=== PATIENT | male | born 1945 | race Caucasian/White ===

== ENCOUNTER 2019-09-28 13:30 | Inpatient (IN) ==
--- NOTE | 2019-09-28 15:18 | PROVIDER DOCUMENTATION ---
HPI-Screening - General Chief Complaint: Weakness Stated Complaint: CANT WALK, Time Seen by Provider: 09/28/19 15:08 Source: patient, family Allergies/Adverse Reactions: Allergies Allergy/AdvReac Type Severity Reaction Status Date / Time No Known Allergies Allergy Verified 05/06/18 08:43 Home Medications: Home Medication List Medication Instructions Recorded Confirmed Last Taken Type ATORVAstatin [Lipitor] 40 mg PO QHS 03/09/14 03/09/14 Unknown History Aspirin 81 mg PO DAILY 03/09/14 03/09/14 03/09/14 08:00 History Estradiol [Estrace] 2 mg PO TID 03/09/14 03/09/14 03/09/14 08:00 History Meclizine HCl [Antivert] 25 mg PO TID 03/09/14 03/09/14 Unknown History Medroxyprogesterone [Provera] 2.5 mg PO DAILY 03/09/14 03/09/14 03/09/14 08:00 History Melatonin/Herbal Complex #184 1 each PO HS 03/09/14 03/09/14 03/09/14 21:00 History [Sleep Softgel] Spironolactone [Aldactone] 100 mg PO BID 03/09/14 03/09/14 03/09/14 08:00 History Levomilnacipran HCl [Fetzima] 1 each PO DAILY 03/10/14 03/10/14 03/09/14 08:00 History Metformin [Glucophage] 1,000 mg PO DAILY 03/10/14 03/10/14 03/09/14 08:00 History Patient arrived via EMS?: No HPI: 74yof presents to ED with her family who report that she has had increased weakness, increased confusion, inability to ambulate, and is mostly nonverbal over the past 2 weeks. They deny that she has experienced fever, chills, vomiting, chest pain, shortness of breath, or falls. Physical Exam-Screening - CONSTITUTIONAL General Appearance: appears well, alert, no apparent distress - EYES Eyes: PERRL/EOMI, pink conjunctivae - HEAD, EARS, NOSE, MOUTH & THROAT HENMT: normocephalic/atraumatic, moist mucous membranes, normal ENT inspection - NECK Neck: non-tender, full range of motion, supple. negative: meningismus - RESPIRATORY Respiratory: chest non-tender, lungs clear, normal breath sounds - CARDIOVASCULAR Cardiovascular: normal peripheral pulses, regular rate, rhythm - GASTROINTESTINAL (ABDOMEN) Abdominal Exam: normal bowel sounds, non tender, soft - MUSCULOSKELETAL Back Exam: normal inspection, no CVA tenderness, no vertebral tenderness Extremity: normal range of motion, non-tender, normal inspection, other (unable to test gait) - SKIN Integumentary: normal color, normal turgor, warm/dry - NEUROLOGIC Neurologic: other (Nonverbal, cooperative with exam) Screening Depart - Departure ED Screening Disposition: Continued in ED for Treatment Referrals and Follow-Ups: None,PCP [Primary Care Provider] - Attestation - Physician/ SUBHASH Attestation Patient care was provided by Advanced Practice Provider:: Yes Advanced Practice Provider:: Oxana Kyle Advanced Practice Provider documentation review:: The Mid-level provider documentation, treatment plan and medical decision making was reviewed by the physician who agrees with all treatment and medical decision making by the MLP. The physician spent face to face time with patient:: No Advanced Practice Provider documentation review:: Supervising physician onsite and consulted in the evaluation and care of this patient. The physician did not have a face to face encounter with the patient.
--- NOTE | 2019-09-28 15:41 | Diag Imaging Result Doc PS360 ---
EXAM: CT HEAD W/O CONTRAST 09/28/2019 HISTORY: weakness, AMS TECHNIQUE: This exam was performed using automated exposure control, adjustment of mA or kV according to patient size, and/or use of iterative reconstruction technique. COMMENT: There is generalized cerebral atrophy with extensive patchy lucency in the white matter of both hemispheres. Compared to 07/28/2019 this has not changed significantly. There is no evidence of mass effect, bleed, or abnormal extra-axial fluid collection. The calvarium is intact. The visualized paranasal sinuses are clear. IMPRESSION: Chronic ischemic white matter change. No evidence of acute disease. In view of the chronic changes further evaluation with MRI may be desirable if clinically indicated. Electronically signed by Zachariah Rivera 09/28/2019 3:38 PM
--- NOTE | 2019-09-28 15:43 | EKG Report ---
Test Performed on : 09/28/2019 3:25:00 PM Test Reason : weakness Blood Pressure : / mmHG Vent. Rate : 100 BPM Atrial Rate : 100 BPM P-R Int : 182 ms QRS Dur : 100 ms QT Int : 390 ms P-R-T Axes : 011 008 -02 degrees QTc Int : 503 ms Normal sinus rhythm. 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
--- NOTE | 2019-09-28 15:49 | Diag Imaging Result Doc PS360 ---
EXAM: CHEST-2 VIEWS 09/28/2019 HISTORY: weakness, AMS TECHNIQUE: PA and lateral chest COMMENT: The inspiration is less optimal than on 07/28/2019. There is some questionable atelectasis or pneumonia in the lateral costophrenic sulcus on the left. Otherwise are has been no significant change. IMPRESSION: Questionable left lower lobe atelectasis. Poor inspiration. Electronically signed by Zachariah Rivera 09/28/2019 3:46 PM
[2019-09-28 16:11] LABS: BASO# 0.01 X1000 (0.0-0.2); BASO% 0.1 % (0.0-0.8); EOS# 0.09 X1000 (0.0-0.7); EOS% 0.6 % (0.0-10.0); HEMATOCRIT 44.9 % (42.0-52.0); HEMOGLOBIN 14.8 g/dL (14.0-18.0); IMM GRAN# 0.03 X1000 (0.0-0.04); IMM GRAN% 0.2 % (0.0-0.5); LYMPH% 16.1 % (20.5-51.1); MCH 29.4 PG (27-31); MCV 89.1 FL (81-99); MONO# 1.39 X1000 (0.11-0.59); MONO% 9.3 % (1.7-9.3); MPV 10.7 FL (7.4-10.4); NEUT# 11.03 X1000 (1.4-6.5); NEUT% 73.7 % (42.2-75.2); PLT 322 X1000 (130-400); RBC 5.04 XMIL (4.7-6.1); RDW 13.8 % (11.5-14.5); WBC 14.95 X1000 (4.8-10.8)
[2019-09-28 16:29] LABS: ALB/GLOB RATIO 1.3; ALBUMIN 4.8 g/dL (3.5-5.0); CALCIUM 10.4 mg/dL (8.8-10.2); CREATININE 1.2 mg/dL (0.7-1.2); POTASSIUM 3.9 mmol/L (3.5-5.1); TOTAL BILIRUBIN 0.64 mg/dL (0.20-1.00); TOTAL PROTEIN 8.5 g/dL (6.3-8.3)
[2019-09-28] MEDS ORDERED: ROCEPHIN 1 GM in NS 50 ML IV ONE (18:42)
--- NOTE | 2019-09-28 18:42 | PROVIDER DOCUMENTATION ---
HPI-General Adult - General Chief Complaint: Weakness Stated Complaint: CANT WALK, Time Seen by Provider: 09/28/19 15:08 Source: family (spouse) Allergies/Adverse Reactions: Patient Allergies Allergy/AdvReac Type Severity Reaction Status Date / Time No Known Allergies Allergy Verified 05/06/18 08:43 Home Medications: Home Medication List Medication Instructions Recorded Confirmed Last Taken Type ATORVAstatin [Lipitor] 40 mg PO QHS 03/09/14 03/09/14 Unknown History Aspirin 81 mg PO DAILY 03/09/14 03/09/14 03/09/14 08:00 History Estradiol [Estrace] 2 mg PO TID 03/09/14 03/09/14 03/09/14 08:00 History Meclizine HCl [Antivert] 25 mg PO TID 03/09/14 03/09/14 Unknown History Medroxyprogesterone [Provera] 2.5 mg PO DAILY 03/09/14 03/09/14 03/09/14 08:00 History Melatonin/Herbal Complex #184 1 each PO HS 03/09/14 03/09/14 03/09/14 21:00 History [Sleep Softgel] Spironolactone [Aldactone] 100 mg PO BID 03/09/14 03/09/14 03/09/14 08:00 H istory Levomilnacipran HCl [Fetzima] 1 each PO DAILY 03/10/14 03/10/14 03/09/14 08:00 History Metformin [Glucophage] 1,000 mg PO DAILY 03/10/14 03/10/14 03/09/14 08:00 History - History of Present Illness -Gen Adult Nature of Presenting Problems: Patient is a 74 yowm who presents to the ED with his due to generalized weakness x 2 weeks. She reports some AMS and states the weakness progressed today to the point where pt was unable to walk. Reports that pt fell getting out of the shower a week and a half ago and then slipped out of bed a week ago due to weakness. She states he has not complained of any pain. Denies cough, fever, n/v/d, pain, or any other complaints. Review of Systems - Adult - REVIEW OF SYSTEMS - ADULT Constitutional: reports: no symptoms reported. denies: fever Eyes: reports: no symptoms reported Ears, Nose, Mouth & Throat: reports: no symptoms reported Cardiovascular: reports: no symptoms reported Respiratory: reports: no symptoms reported Gastrointestinal: reports: no symptoms reported Genitourinary: reports: no symptoms reported Musculoskeletal: reports: see HPI (weakness) Integumentary: reports: no symptoms reported Neurological: reports: see HPI (AMS), loss of balance Psychiatric: reports: no symptoms reported Endocrine: reports: no symptoms reported Hematologic/Lymphatic: reports: no symptoms reported Allergic/Immunologic: reports: no symptoms reported All Other Systems: Reviewed and Negative Past History - Adult - PAST MEDICAL HISTORY-ADULT Review of Records: reports: Old Records Reviewed, Nursing Assessment Review, Medications Reviewed, Social history reviewed & non-contributory. Major Childhood Illnesses: reports: denies history Cardiovascular: reports: denies history Genitourinary: reports: denies history Musculoskeletal: reports: denies history Endocrine/Immune: reports: Diabetes Diabetes Type: Type 2 Diabetes controlled by:: PO Meds - PRIOR SURGERIES/PROCEDURES Surgical/Procedure History: reports: reviewed, not pertinent - FAMILY HISTORY Family History: reviewed, not pertinent - SOCIAL HISTORY Smoking: non-smoker Physical Exam-General - PHYSICAL EXAM-ADULT Initial Vital Signs Reviewed: Yes - CONSTITUTIONAL General Appearance: alert, no apparent distress. negative: lethargic, slow to respond - EYES Eyes: PERRL/EOMI, pink conjunctivae. negative: sclera injected, scleral icterus, sunken eyes - HEAD, EARS, NOSE, MOUTH & THROAT HENMT: normocephalic/atraumatic, moist mucous membranes - NECK Neck: non-tender, full range of motion, supple, normal inspection. negative: C- spine tenderness (no stepoff) - RESPIRATORY Respiratory: chest non-tender, lungs clear, normal breath sounds, no respiratory distress, no accessory muscle use - CARDIOVASCULAR Cardiovascular: normal peripheral pulses, regular rate, rhythm, no gallop, no murmur - GASTROINTESTINAL (ABDOMEN) Abdominal Exam: normal bowel sounds, non tender, soft - MUSCULOSKELETAL Back Exam: normal inspection Extremity: non-tender, normal inspection, pelvis stable - SKIN Integumentary: normal color, warm/dry. negative: cyanosis, diaphoresis, jaundice, mottled, pallor - NEUROLOGIC Neurologic: negative: aphasia, facial droop - PSYCHIATRIC Psych/Mental Status: normal mood/affect, other (Pt alert, unable to answer any questions regarding orientation.) Progress - PLAN OF CARE/RESULTS Progress/Plan/Lab Results: Vital Signs - 8 hr 09/28/19 13:40 09/28/19 15:28 Temperature 98.5 F Pulse Rate 95 H 100 H Respiratory Rate 16 18 Blood Pressure 167/81 189/114 O2 Sat by Pulse Oximetry 96 98 Laboratory Results - last 24 hr 09/28/19 09/28/19 09/28/19 15:50 15:50 15:50 WBC 14.95 H RBC 5.04 Hgb 14.8 Hct 44.9 MCV 89.1 MCH 29.4 MCHC 33.0 RDW Std Deviation 13.8 Plt Count 322 MPV 10.7 H Immature Gran % (Auto) 0.2 Neut % (Auto) 73.7 Lymph % (Auto) 16.1 L Hancock % (Auto) 9.3 Eos % (Auto) 0.6 Baso % (Auto) 0.1 Immature Gran # (Auto) 0.03 Neut # (Auto) 11.03 H Lymph # (Auto) 2.40 Hancock # (Auto) 1.39 H Eos # (Auto) 0.09 Baso # (Auto) 0.01 Sodium 136 Potassium 3.9 Chloride 94 L Carbon Dioxide 24 L Anion Gap 18 BUN 19 Creatinine 1.2 Estimated GFR/1.73 m2 59 BUN/Creatinine Ratio 16 Glucose 202 H Calculated Osmolality 280 Calcium 10.4 H Total Bilirubin 0.64 AST 17 ALT 21 Alkaline Phosphatase 97 Troponin T < 0.010 Total Protein 8.5 H Albumin 4.8 Globulin 3.7 Albumin/Globulin Ratio 1.3 Orders Category Date Time Status CHEST-2 VIEWS [RAD] Stat Exams 09/28/19 15:[address] HEAD W/O CONTRAST [CT] Stat Exams 09/28/19 15:15 Completed CBC WITH ELECTRONIC DIFF [HEME] Stat Lab 09/28/19 15:50 Completed COMPREHENSIVE METABOLIC PANEL [CHEM] Stat Lab 09/28/19 15:50 Completed TROPONIN T Stat Lab 09/28/19 15:50 Completed URINALYSIS [URINALYSIS] Stat Lab 09/28/19 15:00 Uncollected Generalized Adult Illness >60 Stat Oth 09/28/19 14:59 Ordered EKG [EKG] Stat Ther 09/28/19 15:00 Draft Result Diagrams: 09/28/19 15:50 09/28/19 15:50 - REASSESSMENT Reassessment #1 Time Reassessed: 18:47 Status: other ( in agreement with admission plan.) - XRAY 1 XRAY Study: Chest ([facility] - [address], [address], [place] [address] [facility] - [facility], [place] [address] Department of Imaging Patient: JAKI COLEMAN Date: 09/28/19MR#: [id number] : 1945 Status: PRE ERAcct#: [id number] Age/Sex: 74/MRoom/Bed: Loc: ED Ordering Physician: Oxana Kyle Family Physician: None,PCP Reason for Procedure: weakness, AMS ____ Signed EXAM: CHEST-2 VIEWS 09/28/2019 HISTORY: weakness, AMS TECHNIQUE: PA and lateral chest COMMENT: The inspiration is less optimal than on 07/28/2019. There is some questionable atelectasis or pneumonia in the lateral costophrenic sulcus on the left. Otherwise are has been no significant change. IMPRESSION: Questionable left lower lobe atelectasis. Poor inspiration. Electronically signed by Zachariah Rivera 09/28/2019 3:46 PM 09/28/19 1546 Interpreting Physician: Zachariah Rivear MD Dictated Date/Time: 09/28/19 1545 cc: Oxana Kyle; None,PCP) - CT/MRI 1 CT Study: Head ([facility] - [address], [address], [place] [address] , [place] [address] Department of Imaging Patient: DELMY COLEMAN Date: 09/28/19MR#: [id number] : 1945ADM Status: PRE ERAcct#: [id number] Age/Sex: 74/MRoom/Bed: Loc: ED Ordering Physician: Oxana Kyle Family Physician: None,PCP Reason for Procedure: weakness, AMS Signed EXAM: CT HEAD W/O CONTRAST 09/28/2019 HISTORY: weakness, AMS TECHNIQUE: This exam was performed using automated exposure control, adjustment of mA or kV according to patient size, and/or use of iterative reconstruction technique. COMMENT: There is generalized cerebral atrophy with extensive patchy lucency in the white matter of both hemispheres. Compared to 07/28/2019 this has not changed significantly. There is no evidence of mass effect, bleed, or abnormal extra-axial fluid collection. The calvarium is intact. The visualized paranasal sinuses are clear. IMPRESSION: Chronic ischemic white matter change. No evidence of acute disease. In view of the chronic changes further evaluation with MRI may be desirable if clinically indicated. Electronically signed by Zachariah Rivera 09/28/2019 3:38 PM 09/28/19 1538 Interpreting Physician: Zachariah Rivera MD Dictated Date/Time: 09/28/19 1537 cc: Oxana Kyle; None,PCP) - CONSULTS/PCP/HOSPITALIST Notification #1 *Consult/PCP/Hospitalist*: GUSTAVO Cardenas [employer] DISPENSER Time Discussed: 18:46 Reason/Comments: admit- weakness, AMS, pne Consult Disposition: Admit Departure - Departure Date of Disposition Decision: 09/28/19 Time of Disposition Decision: 18:46 DIAGNOSIS: Weakness Pneumonia Qualifiers: Pneumonia type: due to unspecified organism Laterality: left Lung location: lower lobe of lung Qualified Code(s): J18.1 - Lobar pneumonia, unspecified organism Disposition: ADMITTED INPATIENT 09 Certified Medical Emergency: Emergent Condition: Stable Referrals and Follow-Ups: None,PCP [Primary Care Provider] - - Critical Care Note This patient required my direct & personal management of CC.: No Attestation - Physician/ SUBHASH Attestation Patient care was provided by Advanced Practice Provider:: Yes Advanced Practice Provider:: Rolando Eagle Advanced Practice Provider documentation review:: The Mid-level provider documentation, treatment plan and medical decision making was reviewed by the physician who agrees with all treatment and medical decision making by the MLP. The physician spent face to face time with patient:: No Advanced Practice Provider documentation review:: Supervising physician onsite and consulted in the evaluation and care of this patient. The physician did not have a face to face encounter with the patient.
[2019-09-28] MEDS ORDERED: ZOSYN 3.375 GM in NS 50 ML IV ONE (18:47)
[2019-09-28 20:35] LABS: INR 1.03; PROTIME 13.6 Seconds (11.0-16.0); PTT 31.3 Seconds (22.3-41.8)
[2019-09-28] MEDS ORDERED: NS 1,000 ML IV SCH (23:45)
[2019-09-28] MEDS ORDERED: ZOFRAN IV PRN (23:57)
[2019-09-29] MEDS ORDERED: TYLENOL PR PRN (00:02)
[2019-09-29] MEDS: PROTONIX IV SCH (00:27)
[2019-09-29 01:37] LABS: CK INDEX 1.2 (0.0-2.5); CK-MB 2.91 ng/mL (0.0-5.0)
[2019-09-29 05:13] LABS: URINE SOURCE CATH
[2019-09-29 05:16] LABS: BILIRUBIN URINE NEGATIVE (NEGATIVE); BLOOD URINE SMALL (NEGATIVE); COLOR YELLOW; GLUCOSE URINE NEGATIVE (NEGATIVE); KETONE URINE NEGATIVE (NEGATIVE); LEUKOCYTES URINE NEGATIVE (NEGATIVE); NITRITE URINE NEGATIVE (NEGATIVE); PROTEIN URINE TRACE mg/dL (NEGATIVE); SP GRAVITY URINE 1.017; TURBIDITY URINE CLEAR (CLEAR); UROBILINOGEN URINE NORMAL (NORMAL)
[2019-09-29 05:17] LABS: UR EPITHELIAL CELLS <10 /HPF (<10); URINE BACTERIA NEGATIVE /HPF; URINE RBC <10 /HPF (<10); URINE WBC <10 /HPF (<10)
[2019-09-29] MEDS: ZOSYN 3.375 GM in NS 50 ML IV SCH ×3 (06:32→14:01)
[2019-09-29] MEDS: HUMULIN R SUBQ SCH ×4 (06:34→21:19)
[2019-09-29 07:26] LABS: BASO# 0.02 X1000 (0.0-0.2); BASO% 0.2 % (0.0-0.8); EOS# 0.24 X1000 (0.0-0.7); EOS% 2.5 % (0.0-10.0); HEMATOCRIT 40.7 % (42.0-52.0); HEMOGLOBIN 13.8 g/dL (14.0-18.0); IMM GRAN# 0.02 X1000 (0.0-0.04); IMM GRAN% 0.2 % (0.0-0.5); LYMPH# 1.65 X1000 (1.2-3.4); MCH 30.3 PG (27-31); MCHC 33.9 g/dL (33-37); MCV 89.5 FL (81-99); MONO# 0.93 X1000 (0.11-0.59); MONO% 9.6 % (1.7-9.3); MPV 10.7 FL (7.4-10.4); NEUT# 6.86 X1000 (1.4-6.5); NEUT% 70.5 % (42.2-75.2); PLT 240 X1000 (130-400); RBC 4.55 XMIL (4.7-6.1); RDW 13.6 % (11.5-14.5); WBC 9.72 X1000 (4.8-10.8)
[2019-09-29 07:54] LABS: CALCIUM 9.4 mg/dL (8.8-10.2); CREATININE 1.2 mg/dL (0.7-1.2); POTASSIUM 3.6 mmol/L (3.5-5.1)
--- NOTE | 2019-09-29 09:22 | HISTORY AND PHYSICAL ---
PRIMARY CARE PROVIDER: [facility] in [place]. DATE AND TIME: 09/28/2019 at 2000. CHIEF COMPLAINT: Weakness. HISTORY OF PRESENT ILLNESS: Ms. Scott is a 74-year-old transgender woman, who presented to the ER with initial chief complaint of weakness. The patient previously was identified as a male with the previous name of Lazaro Scott, though is a transgender woman at this time, who goes by the name of Lauryn Scott. She does like to be addressed as Ms. Combs or Ms. Scott, with the prefix of she as well. Though the patient identifies as a woman, she still does have male genitalia, and does take medications of Estrace and Provera for this as well. The patient's , who was present at bedside, did provide most of the history as the patient was confused. She reports that Ms. Scott, for the past few weeks now, has had a steady decline. She reports that she has been having some worsening problems with memory and confusion, though this has gotten much worse over the past week or two. She states that since approximately 2 weeks ago, the patient went from being able to walk with a cane or a walker, to being wheelchair-dependent. Her reports that she has had approximately 2 to 3 falls secondary to weakness. She also reports that she has been having memory problems, has been having worsening confusion. Her states that sometimes it is as though she cannot find the words to speak, though knows what she wants to say. She also reports that she has been favoring her left side, such as when she is sitting in a chair, she will lean to the left side. She reports no known history of her having fever, body aches, or chills. denies her having any recent diagnosis of a urinary infection or any other infection. Her denies her having any reported chest pain, abdominal pain, nausea, vomiting, or diarrhea. Her reports that she is incontinent, though has not complained of any dysuria. Her denies her having any reported pain in extremities, though she states that occasionally she will have swelling in her ankles and feet. Her reports that there is a history of hyperlipidemia, diabetes mellitus type 2, though she denied her having any known history of stroke or TIA in the past. A previous history and physical from 2013 did have a history of TIA present on it. She reports that she previously was on aspirin 81 mg p.o. daily, though they have stopped taking this several months ago. Though the patient's did not report to me, she did report to Dr. Doyle that there was a possible diagnosis of Parkinson's disease by one of her physicians at the [place], though they may have been placed on medications for this, though they decided on their own to stop taking them. Her also does report that they use lidocaine gel for pain in her legs, as well as [id number] ibuprofen 400 mg twice a day. The patient was able to tell me that she was not having any chest pain, though did feel occasionally like she may have been short of breath at times. She also reported that she has had a cough for a few weeks as well. The patient's did not report that she appeared at times that she was short of breath and distressed, though did report seeing her breathe heavy and deeply. Her also reports that they do have an appointment in 3 weeks at the [place] for a swallowing study and evaluation due to she has been having trouble with swallowing and getting choked on food. Upon evaluation in the ER, initial vital signs were temperature 98.5 degrees, heart rate 95, respirations 16, blood pressure is 167/81, oxygen saturation 96% on room air. Laboratory results revealed some leukocytosis with a white blood cell count of 14,950. Chemistries were pretty unremarkable. All electrolytes were within normal limits, except for calcium is slightly elevated at 10.4. The patient was mildly hyperglycemic with a serum glucose of 202. Troponin was negative, though CK was slightly elevated at 236. Urinalysis did show a small amount of blood, but this was a cath urine. This could be secondary to trauma from obtaining the urinalysis. It did not show any signs of infection. It was negative for nitrites, leukocytes, white blood cells, or bacteria. CT of the head without contrast did not show any acute abnormalities. Chest x-ray did show a questionable atelectasis or pneumonia in the lateral costophrenic sulcus on the left. Given the patient's neurological symptoms as well as possible pneumonia, the patient was placed inpatient for admission. REVIEW OF SYSTEMS: Unfortunately, a review of systems was not really able to be performed with the patient due to the patient's current condition and mentation. The patient was able to tell me that she has not been having chest pain, though may have felt short of breath at times, and has had a cough. Other than this, the patient's did provide most of the reported symptoms. Please see the above HPI. PAST MEDICAL HISTORY: 1. Diabetes mellitus type 2. 2. Vertigo. 3. History of TIA. 4. Hyperlipidemia. 5. Questionable diagnosis/history of Parkinson's disease. 6. The patient is a transgender woman. Her assigned sex at was male, and she still does have male genitalia, though identifies herself as a female. The patient does request to be called Ms. RoperLauryn or Ms. Scott, and would like the prefix she used. 7. The patient does have frequent constipation, and does take Colace daily, as well as MiraLAX as needed to assist with bowel movements. PAST SURGICAL HISTORY: Left knee surgery. SOCIAL HISTORY: The patient is a former smoker. She did smoke since the age of 15 or 16, though quit 11 years ago. She smoked approximately 1 pack of cigarettes per day during this time. The patient also had a previous history of alcohol use. Her reports that she quit drinking 10 years ago, though used to drink heavily approximately 3 to 4 times a week. There is no known history of illicit drug use. As previously mentioned, her was present at bedside during my examination. She reports that up until 2 weeks ago, the patient did ambulate with a cane or walker, though since 2 weeks ago has been wheelchair-dependent. FAMILY HISTORY: Positive for her mother is alive, and she is in possibly her 80s from what I understand, and does have a history of dementia and diabetes. This was obtained from previous history and physical. The patient's previous history and physical did also state that she did not know her biological father. ALLERGIES: The patient has no known allergies. HOME MEDICATIONS: 1. Vitamin D3, 1000 unit capsule 1 p.o. daily. 2. Lexapro 10 mg p.o. daily. 3. Estrace 2 mg p.o. daily. 4. Glipizide 10 mg p.o. every a.m. 5. Provera 2.5 mg p.o. daily. 6. Melatonin/herbal complex #184 sleep softgel 1 p.o. at bedtime. 7. Prilosec 20 mg p.o. every a.m. 8. Ditropan XL 10 mg p.o. every a.m. 9. Aldactone 100 mg p.o. every a.m. DIAGNOSTIC DATA: White blood cell count is 14,950, hemoglobin 14.8, hematocrit 44.9, platelet count is 322,000. PT 13.6, INR 1.03, PTT is 31.3. Sodium 136, potassium 3.9, chloride 94, serum bicarbonate is 24, BUN 19, creatinine 1.2, with a GFR of 59, glucose 202, calcium 10.4. Magnesium 1.9. Liver function tests are within normal limits. CK is 236, CK index 1.2, CK-MB is 2.91. Troponin is less than 0.01. Urinalysis was obtained via catheter and was positive for trace protein and small amount of blood. It was negative for glucose, ketones, nitrites, leukocytes, white blood cells, or bacteria. EKG showed normal sinus rhythm with incomplete right bundle-branch block and a prolonged QT. Ventricular rate was 100. QTc was 503. Head CT showed chronic ischemic white matter change, but no evidence of acute disease. It was noted that in view of chronic changes, further evaluation with MRI may be desirable if clinically indicated. This is per Radiology. Chest x-ray shows that there was some questionable atelectasis or pneumonia in the lateral costophrenic sulcus on the left. There is poor inspiration, though otherwise there has been no significant change. This was per Radiology. PHYSICAL EXAMINATION: VITAL SIGNS: Temperature 98.2 degrees, heart rate 88, respirations 14, blood pressure 145/78, oxygen saturation is 97% on room air. GENERAL: Ms. Scott is a 74-year-old female who identifies as a transgender woman. She was resting in the ER stretcher. She was in no acute distress, though she was awake. She was confused, though was able to follow some commands. HEENT: Head is atraumatic, normocephalic. Pupils are equal, round, reactive to light, were 3 mm bilaterally and brisk. Oral mucosa is moist. Oropharynx is clear. NECK: Supple. Trachea midline. CARDIOVASCULAR: The patient has S1, S2 present. No murmurs, gallops, rubs appreciated with a regular rate and rhythm. PULMONARY: The patient has symmetrical chest expansion bilaterally. Lung sounds are clear to auscultation in bilateral full barillas. ABDOMEN: Soft. It does not appear to be distended. The patient does have a protuberant abdomen noted. Bowel sounds are present in all 4 quadrants, were hypoactive. EXTREMITIES: No cyanosis or edema noted. Pedal pulses and radial pulses were 2+ bilaterally. INTEGUMENTARY: The patient's skin is pink, warm, and dry. NEUROLOGICAL: The patient is awake and alert, though was confused upon my examination. She is only oriented to person at this time. She was able to identify her at bedside, and was able to follow some simple commands. There was no facial droop noted. We were not able to complete a visual barillas test due to the patient's understanding and cooperation. The patient did have equal hand grasps bilaterally and muscle strength bilaterally in upper extremities, though did have weakness during examination of the arm raise. This was the same in the left leg raise as well. The patient also does seem to be experiencing what is likely some expressive aphasia. There is overall generalized weakness, though as previously mentioned, the patient's states that she has been favoring her left side, and when performing left arm and left leg raises, the patient did have only slight effort against gravity in these extremities. The patient's neurological exam at this time is limited due to her current condition and mentation. ASSESSMENT AND PLAN: 1. Possible left lower lobe pneumonia. The patient did have some leukocytosis with a white blood cell count of 14,950. She did report a cough and some occasional shortness of breath at times. Given the patient's reported history of dysphagia, there is a concern for possible aspiration pneumonia. Given this, we have placed the patient on antibiotic coverage of Zosyn intravenously. Blood cultures were obtained. We have ordered a sputum culture as well. The patient will be nothing by mouth at this time. We have ordered a swallowing evaluation. We will do aspiration precautions, encouragement of frequent turn, cough, and deep breathing, and incentive spirometry. We will place on as needed DuoNeb treatments if needed. 2. Dysphagia. The patient's did report that she has been having difficulty with swallowing and getting choked on foods. They actually have an appointment in 3 weeks with the [place] for evaluation of this. Given the possibility of pneumonia as well as possible aspiration, we will go ahead and order a swallowing screen to be performed here. We will place the patient nothing by mouth until swallowing screen has been performed. 3. Leukocytosis. This is likely secondary to possible pneumonia. The patient's urinalysis did not show any signs of infection. Will continue treatment as mentioned above in #1, and continue to follow. 4. Possible cerebrovascular accident. For further evaluation of this, we have placed orders for an echocardiogram, carotid ultrasound, and an MRI without contrast in the morning. We will also draw a lipid profile as well. There was a questionable diagnosis/history of Parkinson's. Some of these symptoms could be related to this as well. Given that, we have also placed a consult with Neurology. Will await their evaluation and further recommendations for management. 5. Encephalopathy. Will continue with treatment as mentioned above in #1. The patient has been placed on neurologic checks and frequent vital signs with continuous cardiac telemetry. 6. Weakness. Will continue treatment as mentioned above for #3 and #4. We have also ordered a series of cardiac enzyme and the echocardiogram as previously mentioned, and will continue with our neurological workup. 7. Diabetes mellitus type 2. The patient is nothing by mouth at this time. We are holding oral medication. We have ordered a regular insulin sliding scale per patient specific dosing, not to be treated until fingerstick blood sugar is above 200 while she remains nothing by mouth. 8. Hyperlipidemia. We are holding oral medication at this time, waiting for a swallowing screen, though we have ordered a lipid profile. 9. Deep venous thrombosis prophylaxis will be provided with sequential compression devices. The patient has been placed on the medical floor with telemetry. She will have vital signs and neurologic checks every 4 hours. She is on continuous cardiac telemetry. Further orders and recommendations pending hospital course, diagnostic studies, and physician evaluation. Dictated by WILBERT Moreira for Ayo Doyle MD I have performed a face to face diagnostic evaluation. Labs/ xrays- reviewed. Exam- Chest - rales, CV- regular. A/P- Pneumonia- Admit, check blood cultures, IV ABX. Dr. Doyle cc: Ayo Doyle MD [facility]
--- NOTE | 2019-09-29 09:43 | Diag Imaging Result Doc PS360 ---
EXAM: MRI BRAIN W/O CONTRAST 09/29/2019 HISTORY: Poss. CVA, Encephalopathy, Weakness TECHNIQUE: T1 sagittal, axial and axial T2, FLAIR, DWI and coronal gradient echo. COMMENT: There are hypertrophic changes around the odontoid producing a mild degree of spinal stenosis at the C1 level. There is considerable hyperintensity on T2 in the white matter in the periventricular regions bilaterally. The fourth ventricle is not enlarged. There is some enlargement of the lateral ventricles which may be due to ex vacuo change. There is mild atrophy of the cerebral hemispheres. No evidence of bleed or abnormal extra-axial fluid collection is present. There is no evidence of restricted diffusion. IMPRESSION: No evidence of acute ischemia. Diffuse cerebral periventricular leukoencephalopathy. Mild cerebral atrophy. Mild spinal stenosis at C1 due to hypertrophic changes around the odontoid. Electronically signed by Zachariah Rivera 09/29/2019 9:40 AM
--- NOTE | 2019-09-29 10:24 | PROGRESS NOTE ---
DATE: 09/29/2019 SUBJECTIVE: This morning, I saw Ms. Scott; Ms. Scott is actually registered as a male, but her of over 40 years was at the bedside, and she did remind me that the patient is a female and that I should address her by the female pronoun. She has an extensive history of multiple admissions in the [facility]. Recently discharged a [place] the [place] [facility] for a similar presentation of generalized weakness and vertigo. Said at some point she was admitted to the psych unit as well for over 2 months, was subsequently sent to [facility] and she was doing well after she came from rehab until the past 2 weeks. She has just been progressively been getting weaker and weaker, so she was brought in here. OBJECTIVE: Vital signs: Blood pressure is 149/69, pulse of 83, respiration is 16, temperature is 98.3 degrees and patient is saturating 95%. General exam: Ms. Scott is a 74-year-old registered male/ person was in the bed, no distress. HEENT: Mucosa is slightly dry. Anicteric. Acyanotic. Neck: Supple. Chest: Good air entry bilateral. Did not hear any crepitations. No rhonchi. Cardiovascular: Regular rate and rhythm. No murmurs, no rubs, no gallops. GI/Abdomen: Soft, distended, but nontender. Bowel sounds are present, but hypoactive. Extremities: No pedal edema. ELEVATOR ATTENDANT: The patient is awake, alert, oriented. Seems to be monophasic in her speech without any intonation deflection. Her face has also less expression, but her power in all extremities seems to be fairly okay. LABORATORY DATA: WBC is down to 9.72, hemoglobin is 13.8, platelet count 240. Chemistry is also reviewed. TSH of 4.51. DIAGNOSTIC STUDIES: 1. A chest x-ray did show questionable left lower lobe atelectasis, poor inspiration. 2. A head CT scan showed chronic ischemic white matter changes. 3. The patient is just done with MRI and we are pending the official report. ASSESSMENT: 1. Generalized weakness and fatigue on presentation of unclear etiology. 2. Clinical volume depletion. 3. Leukocytosis, most likely reactive. The patient's chest x-ray does suggest some infiltrate in the left lower lobe. I am not quite sure if there is any pneumonia, so we will repeat the x- ray with 2 views, including lateral, to have a better idea. 4. History of severe depression. The patient has been admitted in the psych unit in [place] before. She is supposed to be on antidepressive medicine; Lexapro is what I have seen in her chart. 5. Abnormal thyroid stimulating hormone. We are going to repeat this with free T4. 6. Constipation. We will start the patient on bowel regimen. PLAN: So in general, I think Ms. Scott is doing well, is clinically stable. I do not really find any neurological deficits. The patient just underwent MRI; we are pending the official report. We will continue with the gentle hydration, and we will be pending evaluation from Neurology. [facility]. [facility], so I will contact case management to see if it will be okay to transfer her [facility] the [facility]. cc: Mathew Poole MD MTDD
[2019-09-29 10:31] LABS: FREE T4 1.26 ng/dL (0.93-1.70); TSH 4.56 uIUmL (0.27-4.20)
--- NOTE | 2019-09-29 14:29 | Diag Imaging Result Doc PS360 ---
EXAM: CHEST-2 VIEWS 09/29/2019 HISTORY: left lower infiltrate ? TECHNIQUE: PA and lateral chest COMMENT: The inspiration is suboptimal. Compared to 09/28/2019 the ill-defined opacity in the left costophrenic sulcus laterally has apparently cleared. IMPRESSION: No acute disease. Electronically signed by Zachariah Rivera 09/29/2019 2:26 PM
--- NOTE | 2019-09-29 19:37 | CONSULTATION ---
DATE OF CONSULTATION: 09/29/2019 Ms. 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 History from the patient is that forgetfulness has been noticeable and details are not certain. History from attentive son at the bedside and from review of the hospital record is that cognitive impairment was recognized more than a few years ago, and there has been a gradual progressive decline. Some days have been better than others, but there has not been abrupt deterioration. There has been unsteady gait with gradually more tendency to falling. There has been gradually more attention and supervision required with feeding, dressing, and daily activities. Son reports occasional trouble swallowing. There is not history of serious head injury, diagnosed stroke, diagnosed seizure, other neurologic event. Son reports there was treatment for Parkinson disease for an uncertain period of months approximately a year ago. Son reports there might have seemed to be minor improvement initially with that treatment, but that did not persist and the medicine was stopped. Son does not recall the name of the medicine or the dose. Son does not recall trial with medicine to help memory. Son states after a fall, the patient will sometimes have a blank stare. Son has seen similar blank stares sometimes when the patient is sitting without falling. Son is not aware of prior workup for seizure, but he reports there has been extensive workup [facility], including fairly recent [facility] hospitalization. Here, initial noncontrast CT of the head showed the usual changes. Brain MRI without contrast showed diffuse white matter changes, but nothing focal or acute. Ventricles are a little bit large, particularly the occipital horns, but the cortical atrophy appears roughly proportionate to the subcortical atrophy. Labs showed WBC count initially 14,000 and then 9000. Blood sugars have ranged 180s to 210s. CK was initially 236 then 164. TSH was 4.5 and free T4 1.26. There has not been fever. Systolic blood pressures have ranged 140s to 180s. Heart rate has ranged 80 to 100. There is reported past history of diabetes mellitus type 2, dyslipidemia. There is report of cigarette smoking from teens through early 60s, but no cigarettes in 11 years. Family history is negative for identical or similar problem. Biological father and paternal family history are reported to be not known. On exam, Ms. Scott is awake, alert, attentive. She answered questions appropriately, but often incorrectly. Speech is not significantly dysarthric. Language function is intact on brief bedside testing. Remote memory is fair and recent memory is poor. She could not name the President or discuss recent news. She did not identify this hospital by name. She did not provide the correct date when asked. She had trouble registering 3 words, and then could recall none of 3 words at 5 minutes. There was some perseveration with other cognitive testing. She did well with bedside naming. She interpreted a metaphor concretely. She interpreted a simile correctly. Strength is normal in the arms and legs. Limb tone is symmetric. There is not cogwheeling or rigidity. I did not see any tremor or other abnormal movement. She did well on [id number] testing bilaterally. I did not test her gait. Plantar response is silent bilaterally. There appears to be a stocking pattern of sensory loss on gross testing, but attention to formal sensory testing was limited and I do not find a major sensory deficit. Extraocular movements are full horizontally and only slightly diminished vertically typical for age. Facial motility is a little bit diminished bilaterally, but symmetric. Gag is intact. Tongue is midline. Visual barillas are full, tested grossly by confrontational finger counting. Head and neck are unremarkable. There is no meningismus. IMPRESSION: Global encephalopathy, apparent dementia/major neurocognitive disorder, possibly prior parkinsonian features, history of unsteady gait and likely apraxia, likely also some feeding and dressing apraxia. I suspect this is a degenerative central nervous system process with prominent dementia. I discussed frankly with son the possibility that there might be a multisystem atrophy present. I do not have any urgent suggestion. I would consider cholinesterase inhibitor trial electively, not urgent, and that would not need to be repeated if previously tried. There is some history of blank staring. Seizure seems relatively unlikely, but could be considered. We might consider electroencephalogram and empiric trial with medicine for seizure control. Again, no urgent suggestion. Chart indicates there may be plans for transfer to the [place] and that seems reasonable. If she chooses to be seen locally for Neurology, I will be glad to see her in the office as an outpatient. Thanks for asking Neurology to see Ms. Scott. cc: MD WILLEM Mcdaniel III
--- NOTE | 2019-09-29 22:17 | Carotid Study ---
DATE: 09/29/2019 REFERRING PHYSICIAN: WILBERT Moreira READING PHYSICIAN: Darion March MD BASE FILLER: Dori. INDICATION: Altered mental status, disorientation, possible stroke. There is a comparison study on 03/09/2014. FINDINGS: The patient was moving throughout the exam, which made it somewhat difficult to image. There is a small calcific plaque in the distal right common carotid artery, but it has not produced an elevated velocity or turbulent flow. The right vertebral artery is also not seen. The left is antegrade. Percent stenosis is 0 to 39% percent bilaterally. INTERPRETATION: Unremarkable carotid imaging study. cc: Darion March MD
[2019-09-30] MEDS: PROTONIX IV SCH (00:01)
[2019-09-30] MEDS: SODIUM CHLORIDE 0.9% INJ SCH (00:02)
[2019-09-30] MEDS: HUMULIN R SUBQ SCH ×4 (06:08→20:50)
[2019-09-30 07:12] LABS: HEMATOCRIT 38.8 % (42.0-52.0); HEMOGLOBIN 13.1 g/dL (14.0-18.0); MCH 30.8 PG (27-31); MCHC 33.8 g/dL (33-37); MCV 91.1 FL (81-99); MPV 10.9 FL (7.4-10.4); RBC 4.26 XMIL (4.7-6.1); RDW 13.7 % (11.5-14.5); WBC 8.64 X1000 (4.8-10.8)
[2019-09-30 08:01] LABS: ALBUMIN 4.2 g/dL (3.5-5.0); CALCIUM 9.5 mg/dL (8.8-10.2); CREATININE 1.2 mg/dL (0.7-1.2); PHOSPHORUS 3.8 mg/dL (2.7-4.5); POTASSIUM 3.8 mmol/L (3.5-5.1)
[2019-09-30] MEDS ORDERED: SYNTHROID PO ONE (12:59)
--- NOTE | 2019-09-30 14:31 | PROGRESS NOTE ---
DATE: 09/30/2019 SUBJECTIVE: Ms. Scott appears a little bit brighter to me today. She is attentive and alert. There is nothing new neurologically. is present at the bedside today. She reports [facility], with extensive workup and no definite diagnosis. She reports a trial with medicine for Parkinson's disease and she thinks that was typical carbidopa/levodopa. reports carbidopa/levodopa was on board for several months and that there was never benefit, but she does not recall significant adverse effects. She does not remember the dose. She does not recall trial with medicine for cognitive impairment. She reports the next step from [place] standpoint has been recommendation for memory clinic evaluation. PLAN: I concur with memory clinic recommendation. I would consider cholinesterase inhibitor trial when practical, probably not urgent to start now as an inpatient. I will be glad to see Ms. Scott again, if needed. cc: MD WILLEM Mcdaniel III
--- NOTE | 2019-09-30 16:06 | PROGRESS NOTE ---
DATE: 09/30/2019 SUBJECTIVE: This morning Ms. Scott refers to be doing okay. No new complaints. Still pending physical therapy evaluation. OBJECTIVE: Vital signs: Blood pressure is 147/70, pulse of 81, respiration is 16, temperature 97.8 degrees. The patient is saturating 98% on room air. General exam: Ms. Scott is a 74-year- old registered male, but prefers to be referred to as a female. She is in bed in no distress. HEENT: Mucosa is pink and moist. Anicteric. Acyanotic. Neck: Supple. Chest: Clear to auscultation. No crepitations. No rhonchi. Cardiovascular: Regular rate and rhythm. GI/Abdomen: Soft, nontender. Bowel sounds present. Extremities: No pedal edema. SHIP MANAGER: Patient is awake, alert. Does not show a lot of expression; seems to be expressionless in her face. She is monophasic in her tone. LABORATORY DATA: Has been reviewed, completely unremarkable. ASSESSMENT: 1. Generalized weakness and fatigue on presentation. The patient is pending physical therapy evaluation. 2. Clinical volume depletion improved. 3. Reactive leukocytosis normalized. 4. History of severe dementia. Patient has been admitted to psych unit in the [facility] system before. 5. Constipation. Continue addressing with bowel regimen. 6. Subclinical hypothyroidism. We are going to start the patient on very low- dose thyroid supplement because of the fact that she is constipated, depressed, looks like she is very the low side of metabolism; it could be all because of the hypothyroidism. 7. Global encephalopathy with features concerning neurocognitive decline. The patient has been evaluated by Neurology. There is a suggestion that it could be Parkinson versus Alzheimer dementia. However, at this point, there was also a suggestion that this could be a multisystem atrophy disorder. There was the recommendation to consider cholinesterase inhibitor trial. However, the wants to hold off on that until patient is evaluated on outpatient basis by Dr. Rosenberg. For now, I think Ms. Scott is fairly stable. We are going to get physical therapy to evaluate her and we are pending rehabilitation placement. cc: Mathew Poole MD [facility]
--- NOTE | 2019-09-30 19:56 | ECHO REPORT ---
ORDER DATE: 09/29/2019 INDICATION: Cerebrovascular accident, weakness, fall, altered mental status. FINDINGS: 1. Right atrium appears normal in size. 2. Trace tricuspid regurgitation. RV systolic pressure of 34. 3. Normal RV size and systolic function. 4. No significant pulmonic insufficiency. 5. Normal left atrial size with a dimension of 3.1 cm. 6. No mitral valve prolapse. Trace mitral regurgitation. No evidence of mitral stenosis. 7. Normal LV size, end-diastolic dimension of 3.8. Mild left ventricular hypertrophy with a posterior and interventricular septal wall thickness of 1.4 cm. Normal LV systolic function. Estimated EF is 65% with normal wall motion. 8. Aortic valve opens well. No evidence of stenosis or insufficiency. 9. Aorta appears normal in visualized segments. 10. No pericardial effusion seen. cc: Shahriar Ross MD
[2019-10-01] MEDS: SYNTHROID PO SCH (06:22)
[2019-10-01] MEDS: HUMULIN R SUBQ SCH ×4 (06:22→20:41)
[2019-10-01] MEDS: SODIUM CHLORIDE 0.9% INJ SCH (06:22)
[2019-10-01] MEDS: PROTONIX IV SCH (06:22)
[2019-10-01] MEDS ORDERED: D5 1/2 NS + KCL 20 MEQ 1,000 ML IV SCH (10:45)
[2019-10-01] MEDS: MIRALAX PO SCH (11:01)
[2019-10-01] MEDS: DUONEB (A & A) INH PRN ×2 (11:57→15:29)
[2019-10-01] MEDS: 1/2 NS + KCL 20 MEQ 1,000 ML IV SCH (13:30)
--- NOTE | 2019-10-01 15:06 | PROGRESS NOTE ---
DATE: 10/01/2019 SUBJECTIVE: This morning Ms. Scott refers to be doing fairly the same. She did say one time that she wanted to go to [place] where she has never been before. The physical therapist was at the bedside at the time of the encounter. OBJECTIVELY: Vital: Blood pressure is 109/51, pulse of 83, respirations 16, temperature 97.5 degrees. General: Ms. Scott is a 74-year-old elderly patient. She is in bed, no distress. Mucosa is slightly dry. Anicteric. Acyanotic. Neck: Supple. Chest: Good air entry bilateral. There were no crepitations, no rhonchi. Cardiovascular: Regular rate and rhythm. There are no murmurs, no rubs, no gallops. GI: Abdomen is soft, nontender. Bowel sounds present. Extremities: No pedal edema. ELECTRICAL INTEGRATOR: Patient is awake, alert, very limited in her expression. She say very little, a few words, expressionless in her face, maintains a monophasic intonation in her voice. The patient has not had any bowel movement during the hospital course. She did consume 100% of her meals this morning. ASSESSMENT: 1. Generalized weakness and fatigue on presentation. 2. Clinical volume depletion. Will continue with IV fluids. 3. History of severe dementia, presumably combination of Alzheimer's with vascular. [facility] 4. Constipation. Will continue addressing with bowel regimen. 5. Subclinical hypothyroidism with associated symptoms which would be concerning so patient is being treated as such. 6. Global encephalopathy with neuro cognitive decline. Neurology is on board. 7. Diabetes mellitus. We will continue with insulin regimen and we will also do an A1c to know how glucose has been for the past couple months. cc: Mathew Poole MD
[2019-10-01 17:43] LABS: HEMOGLOBIN A1C 7.5 % (4.8-6.0)
[2019-10-02] MEDS: 1/2 NS + KCL 20 MEQ 1,000 ML IV SCH ×2 (00:23→14:05)
[2019-10-02] MEDS: SYNTHROID PO SCH (06:14)
[2019-10-02] MEDS: PROTONIX IV SCH (06:14)
[2019-10-02] MEDS: HUMULIN R SUBQ SCH ×4 (06:14→20:57)
[2019-10-02] MEDS: SODIUM CHLORIDE 0.9% INJ SCH (06:15)
--- NOTE | 2019-10-02 08:22 | PROGRESS NOTE ---
DATE: 10/02/2019 SUBJECTIVE: This morning, Ms. Scott refers to be doing a little better. Daughter was at the bedside at the time of the encounter. Ms. Scott seems to be more interacting and less confused. OBJECTIVE: Vital Signs: Blood pressure is 153/75, pulse of 77, respirations 18, temperature 98.8 degrees. General: Ms. Scott is a 74-year-old, elderly, male, but prefers to be addressed as female. She is in bed. No distress. HEENT: Mucosa is pink and moist. Anicteric. Acyanotic. Neck: Supple. Chest: Good air entry bilaterally. There were no crepitations, no rhonchi. Cardiovascular: Regular rate and rhythm. GI: Abdomen is soft. It is distended, but nontender. Bowel sounds present, but hypoactive. Extremities: No pedal edema. MEDIA/INSTRUCTIONAL DESIGNER: The patient is awake, alert, oriented, seems to be more communicative today. LABORATORY DATA: Glucose is 208. The patient's A1c is 7.5. So far, blood cultures have been 48 hours negative. CURRENT MEDICATIONS: Include: 1. Nebulization p.r.n. 2. Lactulose 30 mL b.i.d. 3. Insulin sliding scale. 4. Pantoprazole 40 mg IV. 5. MiraLAX 17 grams p.o. daily. 6. Half-normal saline with potassium. 7. Levothyroxine 25 mcg p.o. daily. ASSESSMENT: 1. Generalized weakness and fatigue on presentation. The patient seems to be doing a lot better. Physical Therapy is on board. 2. Clinical volume depletion, improving with intravenous fluids. We are going to continue this for another 24 hours, re-evaluate her volume status, and adjust this accordingly. 3. History of severe dementia, presumably a combination of Alzheimer's with vascular. [facility] Neurology has evaluated her, and they recommend a possible trial of a cholinesterase inhibitor. However, this is not emergent. The prefers to resume this as outpatient. 4. Constipation. Will continue bowel regimen. 5. Subclinical hypothyroidism associated with constipation, depressive symptoms, with generalized fatigue. We think the patient needs to be treated. She has been started on levothyroxine, and she seems to be doing a lot better. 6. Global encephalopathy with neurocognitive decline. Neurology is on board. 7. Diabetes mellitus. The patient's A1c is 7.5. She was on oral hypoglycemic agents at home. We are going to continue insulin regimen while she is in the hospital. At discharge, she will be transitioned to her oral hypoglycemic agents. 8. Disposition. Pending rehab placement. cc: Mathew Poole MD
[2019-10-02] MEDS: LACTULOSE PO SCH ×2 (08:29→20:56)
[2019-10-02] MEDS: LANTUS INSULIN SUBQ SCH (08:29)
[2019-10-02] MEDS: MIRALAX PO SCH (08:29)
[2019-10-02] MEDS: DUONEB (A & A) INH PRN (11:19)
[2019-10-03] MEDS: 1/2 NS + KCL 20 MEQ 1,000 ML IV SCH (05:56)
[2019-10-03] MEDS: PROTONIX IV SCH (05:56)
[2019-10-03] MEDS: HUMULIN R SUBQ SCH ×4 (06:43→21:16)
[2019-10-03] MEDS: SYNTHROID PO SCH (06:43)
[2019-10-03] MEDS: LACTULOSE PO SCH ×2 (08:07→21:17)
[2019-10-03] MEDS: LANTUS INSULIN SUBQ SCH (08:07)
[2019-10-03] MEDS: MIRALAX PO SCH (08:07)
[2019-10-03] MEDS ORDERED: APRESOLINE IV PRN (13:06)
--- NOTE | 2019-10-03 14:13 | PROGRESS NOTE ---
DATE: 10/03/2019 SUBJECTIVE: The patient is resting comfortably in bed. He has not been feeling well today. His is at the bedside and he seems to be interacting a bit more and he has been a little bit less confused, but apparently this has been going on for a little bit as per the . OBJECTIVE: Vital Signs: Temperature 98.3 degrees, pulse 82, respiratory rate 18, blood pressure 183/95 oxygen saturation 99 on room air. HEENT: Head normocephalic, no trauma PERRLA. Neck: Supple. No JVD. No masses. Central trachea. Chest: Clear to auscultation no wheezing no rales. Abdomen: Soft slightly distended but nontender. Positive bowel sounds, a little bit hypoactive though, seems to be gas with percussion. Extremities: No pedal edema. No clubbing. No cyanosis. Neurological: This patient is awake. He is alert. He is he is following commands. He is able to communicate. LABORATORY: Glucose 179. ASSESSMENT AND PLAN: 1. Generalized weakness and fatigue on presentation. We will continue physical therapy and call the goal is to send this patient to a rehab center. I had a large conversation with the at the bedside and it looks like she cannot take care of him at home so she wants to go to rehab 1st and probably she will ask for long-term placement. 2. Dehydration, improved. I will actually stop the IV fluid, since he is tolerating p.o. and having bowel movements. 3. Constipation. Continue with his bowel regimen, seems to be working fine. 4. Subclinical hypothyroidism associated with constipation, depressive symptoms, and fatigue. We have started this patient on levothyroxine low dose. I explained to the that he needs to get a new a blood level to check if we need to increase the amount of Synthroid or keep it that way. We will continue to monitor. Again, we need a new lab work in 6 months. 5. Global encephalopathy with neuro cognitive decline, neurology on board. No new suggestions. I believe this is his baseline. 6. Type 2 diabetes with a hemoglobin A1c of 7.5. I will continue with same management for now and I will put him back on his home medications at discharge. 7. Disposition pending rehab placement. cc: Donaldo Arthur MD
[2019-10-04] MEDS: HUMULIN R SUBQ SCH ×3 (06:22→16:53)
[2019-10-04] MEDS: SYNTHROID PO SCH (06:22)
[2019-10-04] MEDS: PROTONIX PO SCH (06:22)
[2019-10-04 07:01] LABS: BASO# 0.01 X1000 (0.0-0.2); BASO% 0.1 % (0.0-0.8); EOS# 0.22 X1000 (0.0-0.7); EOS% 2.7 % (0.0-10.0); HEMATOCRIT 40.2 % (42.0-52.0); HEMOGLOBIN 13.6 g/dL (14.0-18.0); LYMPH# 1.27 X1000 (1.2-3.4); LYMPH% 15.6 % (20.5-51.1); MCH 30.2 PG (27-31); MCHC 33.8 g/dL (33-37); MCV 89.3 FL (81-99); MONO# 0.83 X1000 (0.11-0.59); MONO% 10.2 % (1.7-9.3); NEUT# 5.81 X1000 (1.4-6.5); NEUT% 71.4 % (42.2-75.2); PLT 248 X1000 (130-400); RDW 13.3 % (11.5-14.5); WBC 8.14 X1000 (4.8-10.8)
[2019-10-04 07:28] LABS: AGAP 16; BUN 12 mg/dL (8-22); CALCIUM 9.6 mg/dL (8.8-10.2); CHLORIDE 98 mmol/L (98-107); COSMO 282; CREATININE 1.1 mg/dL (0.7-1.2); ESTIMATED GFR > 60; GLUCOSE 179 mg/dL (70-104); POTASSIUM 4.2 mmol/L (3.5-5.1); SODIUM 139 mmol/L (136-145); TCO2 25 mmol/L (25-35)
[2019-10-04] MEDS: DUONEB (A & A) INH PRN ×2 (08:02→15:36)
[2019-10-04] MEDS: MIRALAX PO SCH (09:42)
[2019-10-04] MEDS: LANTUS INSULIN SUBQ SCH (09:43)
--- NOTE | 2019-10-04 12:50 | PROGRESS NOTE ---
DATE: 10/04/2019 SUBJECTIVE: No acute events overnight. The patient is resting comfortably in bed. No chest pain or shortness of breath. He has been answering my questions. OBJECTIVE: Vital Signs: Temperature 98.4 degrees, pulse 93, respiratory rate 17, blood pressure 155/82, oxygen saturation 99 on room air. HEENT: Head normocephalic, no trauma. PERRLA. Neck: Supple. No JVD. No masses. Central trachea. Chest: Clear to auscultation. No wheezing. No rales. Abdomen: Soft, slightly distended but nontender. Positive bowel sounds. Extremities: No edema, no clubbing, no cyanosis. Neurological: The patient is awake, he is alert. He is following commands. He is able to communicate. He is answering to most of my questions. LABORATORY DATA: WBC 8.1, hemoglobin 13.6, hematocrit 40.2, platelet 248,000. Sodium 139, potassium 4.2, chloride 98, bicarbonate 25, BUN 12, creatinine 1.1, glucose 179, calcium 9.6. ASSESSMENT AND PLAN: 1. Generalized weakness and fatigue on presentation. Continue physical therapy, pending rehab center placement. 2. Dehydration, resolved. 3. Constipation. Continue with the same bowel regimen. 4. Subclinical hypothyroidism associated with constipation, depressive disorder and fatigue. We have started this patient on levothyroxine. I explained to the that she needs to follow up the TSH in 6 weeks to see if he needs to increase or decrease his treatment. 5. Global encephalopathy with neurocognitive decline, Neurology on board. No new suggestion for now. Probably this is his baseline. 6. Type 2 diabetes with a hemoglobin A1c of 7.5. I will continue with the same management for now and I will put this patient back on his home medications upon discharge. 7. Disposition. Pending rehab center placement. cc: Donaldo Arthur MD
[2019-10-05] MEDS: HUMULIN R SUBQ SCH ×3 (02:58→10:25)
[2019-10-05] MEDS: SYNTHROID PO SCH ×2 (05:44→06:03)
[2019-10-05] MEDS: PROTONIX PO SCH ×2 (05:44→06:03)
[2019-10-05] MEDS: MIRALAX PO SCH (10:25)
[2019-10-05] MEDS: LANTUS INSULIN SUBQ SCH (10:25)
[2019-10-05] MEDS ORDERED: CALMOSEPTINE OINTMENT TOP ONE (10:47)
[2019-10-05] MEDS ORDERED: CALMOSEPTINE OINTMENT TOP PRN (10:56)
--- NOTE | 2019-10-05 11:50 | DISCHARGE SUMMARY ---
ADMISSION DATE: 09/28/2019 DISCHARGE DATE: 10/05/2019 DISCHARGE DIAGNOSES: 1. Dehydration resolved. 2. Subclinical hypothyroidism associated with constipation, depressive disorder, and fatigue. 3. Generalized weakness and fatigue on presentation. 4. Constipation. 5. Global encephalopathy with neurocognitive decline. 6. Type 2 diabetes with hemoglobin A1c of 7.5. PROCEDURES PERFORMED: 1. Chest x-ray dated 09/28/2019. Impression: Questionable left lower lobe atelectasis, poor inspiration. 2. Head CT scan dated 09/28/2019. Impression: Chronic ischemic white matter change. No evidence of acute disease. 3. Brain MRI dated 09/29/2019. No evidence of acute ischemia. Diffuse cerebral periventricular leukoencephalopathy. Mild cerebral atrophy. Mild spinal stenosis at C1 due to hypertrophic changes around the odontoid. 4. Carotid Doppler ultrasound dated 09/29/2019. Interpretation: Unremarkable carotid imaging study echocardiogram dated 09/29/2019 with ejection fraction of 65 with normal wall motion. 5. Chest x-ray dated 09/29/2019. Impression: No acute disease. CONSULTANTS: Neurology Department Dr. Rosenberg. HOSPITAL COURSE: A 74-year-old presented to the emergency department with the chief complaint of generalized weakness. The patient previously was identified as a male with the previous name of Lazaro Scott, though is a transgender woman at this time, who goes by the name of Lauryn Scott. This patient still has male genitalia, and does take some medications for this as well. The patient's , who was at that moment at the bedside provided most of the story as the patient was confused. She reports that Mrs. Scott for the past few weeks has had a steady decline, worsening problems with memory and confusion that has been worse for the past week or 2. This has been happening for 2 weeks or so. The patient was able to walk with a cane or walker to be wheelchair dependent. His reported that she has had 2 or 3 falls secondary to weakness as well as memory problems, and worsening confusion. Sometimes, she cannot find the words to speak even though she knows what she wants to say. Apparently, she will lean to the left side also. No history of fever, body aches, or chills. The denies her having any recent diagnosis of a urinary infection or any other infection. No chest pain, abdominal pain, nausea, vomiting, or diarrhea. Per the , she is incontinent, but she was not complaining of any dysuria. No pain reported at the level of the extremities though she states that occasionally she will have some swelling at the ankles and feet. The reported that there is a history of hyperlipidemia and diabetes. No known history of stroke or TIA in the past. Previous history and physical from 2013 showed a TIA on presentation. Apparently, she was on aspirin, but that was stopped several months ago. Apparently, she reported that there is a possible diagnosis of Parkinson's disease by one of the physicians at the [facility]. They may have been placed on medication for this, though they decided on their own to stop taking them. The patient was able to tell the practitioner that she was not having any chest pain, but sometimes she was feeling short of breath. There was some cough a few weeks before admission. The patient's did not report that she appeared at times that she was short of breath or distressed, but occasionally she is breathing heavy and deeply. Her also reports that she has an appointment in 3 weeks at the [facility] for a swallow study because sometimes she has been getting shock on food, but we did not see that on this hospitalization. In the emergency department, she was found to have a temperature 98.5 degrees, heart rate 95, blood pressure 167/81, and oxygen saturation 96 percent on room air, and respirations 16. Mild leukocytosis at 14.9. Chemistry was unremarkable. Calcium slightly elevated though. Hyperglycemia, CK was slightly elevated as well at 236. No signs of urine infection. CT scan of the head without contrast did not show any acute abnormality. Chest x-ray showed questionable atelectasis or pneumonia in the lateral costophrenic sulcus on the left side. Given patient's neurological symptoms, as well as possible pneumonia, the patient was placed for admission. We started this patient on antibiotics and breathing treatment, and aspiration precautions. We did an MRI that showed no evidence of acute ischemia but diffuse cerebral periventricular leukoencephalopathy, mild cerebral atrophy, and mild spinal stenosis at C1 due to hypertrophic changes around the odontoid. Carotid Doppler ultrasound was basically unremarkable as well as the echocardiogram. Repeated chest x-ray did not show any infiltrates, no acute disease so likely the leukocytosis was reactive and normalized. She has a low TSH and because of the fact that she was constipated and she has some depression, and she looks like she is very on the low side of metabolism, she can have a subclinical hypothyroidism and so we started this patient on levothyroxine. I had an extensive conversation with the at the bedside, and I told her that they need to make sure again the TSH in 6 weeks to see if we need to increase the dose or decrease the dose. We are not going to be aggressive at this time. The patient has been having bowel movements, and is tolerating p.o. really well. She seems to be more stable. Neurology Department evaluated this patient for her global encephalopathy that looks like dementia/major neuro cognitive disorder, possible prior parkinsonian seizures, history of unsteady gait and likely apraxia. The neurologist had a familia conversation with a family member and the patient, and states that there might be a multi-system atrophy present and we can consider cholinesterase inhibitor trial electively not urgent. Physical Therapy on board. We have requested to send this patient to a rehab center. Today, this patient will be discharged. She is tolerating p.o. She is really weak, and she will benefit for rehab. I want this patient to follow up with Neurology Department in 1 to 2 months to see how she does, and to see if we need to put this patient on some medications. She also has a follow-up at the [facility]. PHYSICAL EXAMINATION: Vital Signs: Temperature 98.7 degrees, pulse 95, respiratory rate 19, blood pressure 154/77, and oxygen saturation 98 on room air. HEENT: Head normocephalic. No trauma. PERRLA. Neck: Supple. No JVD. No masses. Central trachea. Chest: Clear to auscultation. No wheezing. No rales. Abdomen: Soft, and slightly distended, but nontender. Positive bowel sounds. Extremities: No edema. No clubbing. No cyanosis. Neurological: The patient is awake. She is alert. She is following commands. She is able to communicate. She is answering to most of my questions. LABORATORY: Blood sugar 163. CBC from yesterday, WBC 8.1, hemoglobin 13.6, hematocrit 40.2, and platelets 248,000. Sodium 139, potassium 4.2, chloride 98, bicarbonate 25, BUN 12, creatinine 1.1, glucose 179, and calcium 9.6. DISCHARGE MEDICATIONS: Basically, we will discharge this patient with her home medications. 1. We will add levothyroxine which needs to be followed in 6 weeks to see if we need to increase or decrease the dose. 2. Acetaminophen 650 mg p.o. q.6 hours. 3. DuoNeb 3 mL inhaler q.6 hours as needed for shortness of breath. 4. Vitamin D3 1 tablet p.o. every morning. 5. Lexapro 10 mg p.o. every morning. 6. Estradiol 2 mg p.o. daily. 7. Glipizide 10 mg p.o. every morning. 8. Synthroid 25 mcg p.o. daily. 9. Provera 2.5 mg p.o. daily. 10. Melatonin/herbal complex 1 tablet p.o. at bedtime. 11. Omeprazole 20 mg p.o. every morning. 12. Ditropan 10 mg p.o. every morning. 13. MiraLAX 17 g p.o. daily. 14. Spironolactone 100 mg p.o. every morning. TIME SPENT: Time discharging this patient 40 minutes. cc: Donaldo Arthur MD
[2019-10-05 15:12] VITALS: BP 153/69
== END 2019-10-05 16:55 | DRG 641 ==
LOC: ED 13:30 → 3N 21:03 → SUATTDRO 21:03
PROVIDERS: ATTEND Internal Medicine